=== PATIENT | female | born 1955 ===

== ENCOUNTER → 2023-02-07 06:00 | Outpatient (CLI) | payer OTHER | END | disposition home or self-care (01) | LOC: LAB 06:00 → ADM 15:30 → AMB-ENDOS 02-13 15:30 → EDSTATUS 02-13 15:30 | PROVIDERS: ATTEND Colon & Rectal Surgery | DX: Z20.822 Contact with and (suspected) exposure to COVID-19 (principal); D53.8 Other specified nutritional anemias; K92.1 Melena; Z12.11 Encounter for screening for malignant neoplasm of colon; Z12.12 Encounter for screening for malignant neoplasm of rectum ==